=== PATIENT | male | born 1990 ===

== ENCOUNTER 2022-01-19 11:19 | Outpatient (CLI) | payer OTHER ==
[2022-01-19 12:13] VITALS: BP 124/79
--- NOTE | 2022-01-19 12:13 | SLEEP CARE CONSULTATION ---
Information from patient questionnaire entered by Aminata Madrid MA. I have reviewed and concur with the information entered by Aminata Madrid MA. This document represents the service I personally performed and the decisions made by me, Jennifer Terrell ARNP. History of Present Illness Service Date and Time: 01/19/2022 1119 Reason for Visit: New patient (ONSET 12/1990, ) Accompanied by: Spouse Chief Complaint: reports: Unrefreshed sleep, Snoring, Excessive daytime sleepiness, Observed pauses in breathing, Fatigue Date of Onset: YEARS Usual bedtime: 900 - 1000 PM Time it takes to fall asleep: LESS THAN 30 MINUTES Snores at night: Yes Observed to quit breathing while asleep: Yes Sleeps alone due to snoring: No Number of times waking at night: MORE THAN 3 Reasons for waking at night: reports: Choking, Snoring, Gasping for air, Bat hroom, Other ( waking him up due to snoring or choking in sleep, mary on back) Toss, Turn, or Twitch while sleeping: Yes Recalls having dreams: No Usually gets out of bed at: 6-8 AM Feels refreshed in the morning: No Morning headache: Yes (SOMETIMES; 3-4 times a week; they last 30 minutes usually after coffee) Sleepy or fatigued during the day: Yes Ever fallen asleep while driving: No Takes day naps: Yes (1 time a week for less than hour) Dreams during day naps: No Prior sleep studies: No Additional HPI information: I had the pleasure of seeing ELLYN BENTLEY today regarding the possibility of him having a sleep disorder. His current complaints are excessive daytime sleepiness, fatigue, observed pauses in breathing, snoring and unrefreshed sleep. He is accompanied by his today. He states he saw a ENT who recommended he have a sleep study due to snoring and choking/gasping sounds while sleeping. He states he was told he has a deviated nasal septum. He states he tries to avoid sleeping on his back because of the choking and also because he has more episodes of sleep paralysis when he sleeps on his back. He will wake up and not be able to move. He does not ever remember dreaming. His mother in her sleep from a heart attack. He states she was a snorer and would choke in her sleep. She was never diagnosed with sleep apnea. - Parasomnia Symptoms Ever been unable to move upon waking from sleep: Yes (used to happen nightly; now 2 times a month; mainly on back) Walks in sleep: No Talks in sleep: Yes Ever acted out dreams in sleep: Yes (per ) Ever felt weak in the knees when startled or emotional: No Bothered by creepy, crawly, restless sensations in legs: No Problems with memory or concentration: Yes (concentration mostly) Subjective Initial [place] Sleepiness Scale score: 11 (01/2022) Past Medical History Past Medical History: reports: Other (Potential Hypertension; G6 PD blood disorder) Social History The patient's occupation is a [employer]. Patient is and lives in . Have you smoked in the past 12 months: No Alcohol use: Yes Alcohol amount and frequency: 3 X WEEKLY Caffeine use: Yes Caffeine amount and frequency: 1 X DAILY Family History Family history of sleep disordered breathing: Yes (mother never diagnosed, of heart attack in sleep) Family Hx Sleep Apnea: Mother: Snoring, Sleep apnea - Untreated Allergies and Home Medications Drug allergies reviewed: Yes (NKDA) Home medication list reviewed: Yes Allergy and home medication list: Fish oil Review of Systems Weight gain over past 5 years: 30 Cardiovascular: reports: high blood pressure Respiratory: reports: chronic cough Ear/Nose/Throat: reports: nasal congestion, wisdom teeth removed. denies: tonsillectomy Endocrine: reports: sluggishness, excessive thirst Immunologic: reports: allergies to food or environment (maybe mild to environment) Physical Exam Vital signs obtained and entered by: Edelmira MADRID CMA SHANTHI Blood Pressure: 124/79 (PULSE 76, RESP 16, LEFT) Cuff size: wrist Heart Rate: 73 O2 Saturation: 98 (N95) Height: 5 ft 10 in Weight: 223 lb (CLOTHES) Body Mass Index: 32.0 BMI Classification: Obese Neck circumference: 17 (INCHES) Mouth and throat: narrow oropharynx Soft palate: long Hard palate: normal Uvula: normal Uvula visualization: 50% Mallampati Class II Tongue: enlarged in size with teeth day on lateral edges Tonsils: small Neck: normal w/o lymphadenopathy or thyromegaly Heart: regular rate and rhythm Lungs: clear bilaterally Impression and Plan 1. Suspected Obstructive Sleep Apnea-Hypopnea Syndrome, as suggested by a history of loud and irregular snoring, observed cessation of breath while asleep, gasping or choking in sleep, morning headache, frequent awakening during the night, unrefreshed sleep, cognitive impairment, and excessive daytime sleepiness. Narrow oropharynx and obesity are common predisposing factors for obstructive sleep apnea-hypopnea syndrome. I recommend proceeding to polysomnography to confirm the diagnosis and to assess severity. If the patient has significant sleep disordered breathing, a manual CPAP titration study will also be performed to find the optimal treatment pressure. I informed the patient of what the sleep studies involve and after some discussion, obtained agreement to proceed. The pathophysiology of obstructive sleep apnea-hypopnea syndrome was discussed with the patient and health risks of cardiovascular and cerebrovascular disease if not treated. Risks of drowsy driving discussed in detail and patient advised to avoid long distance driving and to rod puller and coiler at the first sign of drowsiness. Patient agreed to plan. * Schedule polysomnography. * Avoid long distance driving or driving when feeling sleepy. * Avoid alcohol, sedative and muscle relaxant around bedtime. * Attempt to lose weight. * Review instructions provided by trained office staff on how to prepare for the sleep study. * Return for follow-up after sleep study completed. Counseling Topics: Weight loss health impact Other Participants: Spouse/Significant Other Time Spent with Patient (minutes): 31
== END 2022-01-19 11:20 | disposition home or self-care (01) ==
LOC: SC 11:19
PROVIDERS: ATTEND Nurse Practitioner Family
DX: R06.83 Snoring (principal); G47.8 Other sleep disorders; R06.81 Apnea, not elsewhere classified; R51.9 Headache, unspecified; G47.10 Hypersomnia, unspecified; R53.83 Other fatigue; E66.9 Obesity, unspecified; Z68.32 Body mass index [BMI] 32.0-32.9, adult
CPT/HCPCS: 99203; 99212

== ENCOUNTER 2022-02-26 08:20 | Outpatient (CLI) | payer OTHER ==
[2022-02-26 08:59] VITALS: BP 117/75
--- NOTE | 2022-02-26 08:59 | SLEEP CARE CONSULTATION ---
Information from patient questionnaire entered by Aminata Stephenson MA. I have reviewed and concur with the information entered by Aminata Stephenson MA. This document represents the service I personally performed and the decisions made by Xander ulloa Caren J, ARNP. History of Present Illness Service Date and Time: 02/26/2022 0820 Initial [place] Sleepiness Scale score: 11 (01/2022) Current [place] Sleepiness Scale score: 7 Additional HPI information: ELLYN BENTLEY returns for follow up and results of the recently performed polysomnography. The patient was informed of the following findings: No significant sleep disordered breathing with an average AHI of 4.4 and fransisca oxygen saturation of 89%. Patient had an elevated supine AHI of 28.6. I explained the pathophysiology behind obstructive sleep apnea. Patient does not have sleep apnea and was advised how weight gain could increase the risk of developing sleep apnea in the future. I strongly encouraged the patient to lose weight. Patient does not have significant sleep disordered breathing but has elevated AHI in supine position so advised positional therapy. Methods to achieve positional management therapy were discussed; such as, positioning with pillows, wearing a T-shirt with tennis balls sewn into the back or commercially available positional belts. Patient has moderate snoring. Snoring can be reduced by weight loss. Weight loss is best achieved with diet consult. Patient instructed to contact PCP for referral. Snoring can also be treated with an oral appliance from a dentist. Advised to check insurance coverage. In addition, an ENT evaluation can be do to see if other treatment is indicated. Patient counseled not drink alcohol less than 4 hours before bedtime as it can increase snoring and apnea. Patient was cautioned about risks of drowsy driving until sleepiness symptoms resolve. Patient denies drowsy driving. Sleep Study - Results Type of Sleep Study: Polysomnography (f/u poly, [facility], NEG/,) Prior sleep studies: No Polysomnography/Home Sleep Study results: IMPRESSION: The quality of the study is good. The patient had normal sleep efficiency. The sleep architecture was slightly abnormal for lack of slow wave sleep (N3). Respiratory monitoring showed no significant sleep disordered breathing (AHI = 4.4) or hypoxia (fransisca oxygen saturation of 89%). The few respiratory events occurred almost exclusively during supine sleep (supine AHI = 28.6; non-supine = 3.95). Snore was moderate in intensity. There was no significant periodic leg movement of sleep. Cardiac rhythm was normal sinus rhythm without significant arrhythmia. No abnormal behavior (parasomnia) observed during the night. Allergies and Home Medications Home medication list reviewed: Yes (no changes) Review of Systems Review of systems same as previous: Yes (no changes) Physical Exam Vital signs obtained and entered by: Edelmira STEPHENSON CMA AASHANTHI Blood Pressure: 117/75 (RESP 16, PULSE 71, LEFT) Cuff size: wrist Heart Rate: 70 O2 Saturation: 98 (CLOTH MASK) Height: 5 ft 10 in Weight: 227 lb (PT CLOTHES) Body Mass Index: 32.5 BMI Classification: Obese Impression and Plan Snoring but no significant sleep disordered breathing. Patient did have an elevated supine AHI in the moderate range so does have positional obstructive sleep apnea and should avoid sleeping supine. Advised patient that he should avoid sleeping on his back and may use positional belts, pillows or other means to stay off of his back when sleeping. Patient advised that often weight loss will reduce snoring as well as apnea risk. An oral appliance can also be used for snoring. This would require a dental consultation. Patient cautioned not to use other online appliances as can cause bite issues. [facility] and [facility] local dentist who makes oral appliances is available in the office. Patient is advised to check if insurance will cover. An ENT consult can also be helpful to determine if any other treatment is an option. * Attempt to lose weight * Avoid alcohol consumption near bedtime * Return as needed for follow up. Counseling Topics: Weight loss health impact Visit Type: In Office Time Spent with Patient (minutes): 20 Provider Statement: I spent 100% of the Face to Face Visit with the patient with greater than 50% spent counseling the patient and coordination of care.
== END 2022-02-26 08:21 | disposition home or self-care (01) ==
LOC: SC 08:20
PROVIDERS: ATTEND Nurse Practitioner Family
DX: R06.83 Snoring (principal); E66.9 Obesity, unspecified; Z68.32 Body mass index [BMI] 32.0-32.9, adult
CPT/HCPCS: 99212; 99213